=== PATIENT | male | born 1960 | race Caucasian/White ===

== ENCOUNTER → 2016-06-07 | Outpatient (REF) | payer BC ==
[2016-06-07 17:38] LABS: ALBUMIN 4.3 g/dL (3.4-5.0); ANION GAP 14.9 MEQ/L (3-15); CALCULATED IONIZED CALCIUM 3.8 mg/dL (3.8-4.6); TOTAL PROTEIN 7.5 g/dL (6.4-8.5)
== END ==
LOC: LAB 17:06
PROVIDERS: ATTEND Family Medicine
DX: Z00.00 Encounter for general adult medical examination without abnormal findings (principal); Z13.6 Encounter for screening for cardiovascular disorders
CPT/HCPCS: 80053; 80061

== ENCOUNTER → 2016-06-10 | Outpatient (CLI) | payer BC ==
[2016-06-10 17:48] VITALS: BP 127/85
== END ==
LOC: MHUC 15:55
PROVIDERS: ATTEND Physician Assistant
DX: H11.32 Conjunctival hemorrhage, left eye (principal)
CPT/HCPCS: 99213